=== PATIENT | female | born 1960 | race Asian ===

== ENCOUNTER 2017-09-03 09:01 | Emergency (ER) | payer OTHER ==
[~2017-09-03] VITALS: Ht 160 cm; Wt 52.2 kg
--- NOTE | 2017-09-03 09:05 | NUR ---
PT BIBA BLS TO BED 7
[2017-09-03 09:06] VITALS: BP 165/67
[2017-09-03] MEDS ORDERED: ACETAMINOPHEN 325 MG TAB PO ONE (09:20)
--- NOTE | 2017-09-03 09:25 | NUR ---
REPORT GIVEN TO ZAHEER ARMSTRONG
--- NOTE | 2017-09-03 09:25 | NUR ---
PT TAKEN TO XRAY IN WHEELCHAIR
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
--- NOTE | 2017-09-03 09:25 | NUR ---
Bria blackmon in [facility] - 09/03/17 at 0938 by MAGDIEL PT. TAKEN TO CT VIA WHEELCHAIR W/ TECH
--- NOTE | 2017-09-03 09:26 | NUR ---
PT. TAKEN TO XRAY VIA WHEELCHAIR BY TECH
--- NOTE | 2017-09-03 09:50 | NUR ---
PT RETURNED FROM XRAY
--- NOTE | 2017-09-03 09:58 | NUR ---
PT NOW IN BED 6
--- NOTE | 2017-09-03 10:04 | NUR ---
XRAY AT BEDSIDE FOR CHEST EXAM
[2017-09-03 10:28] VITALS: BP 165/67
--- NOTE | 2017-09-03 10:28 | NUR ---
Patient discharged with v/s stable. Written and verbal after care instructions given and explained. Patient verbalized understanding. Ambulatory with steady gait. All questions addressed prior to discharge. Advised to follow up with PMD.
[2017-09-03] MEDS ORDERED: diphenhydrAMINE 50 MG CAP PO ONE ×2 (11:15→11:48)
[2017-09-03] MEDS ORDERED: DEXAMETHASONE 4 MG TAB PO ONE (12:10)
== END 2017-09-03 10:28 | disposition home or self-care (01) ==
LOC: MED 09:01
DX: M54.2 Cervicalgia (principal); V49.59XA Passenger injured in collision with other motor vehicles in traffic accident, initial encounter; Y93.89 Activity, other specified; Y99.8 Other external cause status; Y92.410 Unspecified street and highway as the place of occurrence of the external cause
CPT/HCPCS: 71045; 72050; 99284; Q0092; Q0163